=== PATIENT | female | born 1995 | race Caucasian/White ===

== ENCOUNTER 2017-06-17 13:30 | Emergency (ER) | payer BC ==
[~2017-06-17] VITALS: Ht 162.6 cm; Wt 83.5 kg
[~2017-06-17 13:30] MED LIST: DICYCLOMINE HCL20 MG PO; KETOROLAC TROME10 MG PO; NORCO 10-325 T1 EACH PO; ONDANSETRON HCL8 MG PO
== END 2017-06-17 14:50 | disposition home or self-care (01) ==
LOC: FSED 13:30
DX: F41.1 Generalized anxiety disorder (principal)
CPT/HCPCS: 71046; 85379; 99284

== ENCOUNTER 2018-10-19 09:31 | Inpatient (IN) | payer BC, OTHER ==
[~2018-10-19] VITALS: Ht 165.1 cm; Wt 95.9 kg
--- OUTSIDE RECORDS SUMMARY | 2018-10-19 09:34 | XMS REPORT | Encounter Summary ---
Author Organization Unknown Address [address] [place] [address] Phone [phone] Reason for Visit Medical Complaint Instructions 1. Viral upper respiratory tract infection Bromfed DM 2 mg-30 mg-10 mg/5 mL syrup fluticasone 50 mcg/actuation nasal spray,suspension 2. Influenza-like symptoms rapid flu (A+B) 3. Pain in throat sore throat: care instructions Lidocaine Viscous 2 % mucosal solution rapid strep group A, throat 4. Body mass index 30+ - obesity learning about healthy weight Discussion Note Pt is in NAD; Verbalizes understanding of all instructions with no questions at this time. Plan of Care Patient Instructions Stop dayquil and nyquil. Gargle and spit viscous lidocaine as needed for sore throat as directed. Take fluticasone as needed for congestion. [place] one spray in each nostril twice a day. Take a warm, steamy shower, blow your nose thereafter, and spray in each nostril. Tilt your head up for about 10 seconds and breath through your mouth. Do not sniff or snort the medication in or else the medication will go to your throat and not be absorbed appropriately. Take Bromfed DM for cough as directed. Alternate with Ibuprofen and acetaminophen every 4hrs as needed for pain/fever/headache. Proper hydration and rest. Return to work/school if free of fever for 24-hrs. Do not share any utensils/cups, no kissing, recommend hand washing after coughing/sneezing/blowing nose and cover face when you do so. Take medications as prescribed. Follow up with your PCP within 2-3 days if symptoms worsen as discussed. Reminders Provider Appointments None recorded. Lab Rapid Flu (A+B) 12/19/2017 [facility] Rapid Strep Group a, Throat 12/19/2017 [facility] Referral None recorded. Procedures None recorded. Surgeries None recorded. Imaging None recorded. Medications Name Start Date Bromfed DM 2 mg-30 mg-10 mg/5 mL syrup Take 10 mL every 6-8 hours by oral route as needed for 6 days. Fluarix Quad 5087-2251 (PF) 60 mcg (15 mcg x 4)/0.5 mL IM syringe ADM 0.5ML IM UTD fluticasone 50 mcg/actuation nasal spray,suspension [place] 2 sprays every day by intranasal route as needed. Lidocaine Viscous 2 % mucosal solution Take 15 mL every 3 hours by oral route as needed. Medications Administered None recorded. Vitals Height Weight BMI Blood Pressure 5 ft 5 in 180 lbs 30 kg/m2 116/76 mm[Hg] Lab Results Date Name Specimen Result Interpretation Description Value Range Status Address Rapid Strep Group a, Throat Result negative [facility]: [address] [place] [address] Swab Location Left and Right tonsillar pillars [facility]: [address] [place] [address] Rapid Flu (A+B) Influenza a negative [facility]: [address] [place] [address] Influenza B negative [facility]: [address] [place] [address] Allergies Code Code System Name Reaction Severity Status Onset NKDA Problems Name Status Onset Date Source Body Mass Index 30+ - Obesity Active 12/19/2017 Pain in Throat Active 12/19/2017 Viral Upper Respiratory Tract Infection Active 12/19/2017 Influenza-like Symptoms Active 12/19/2017 Procedures None recorded. Vaccine List Vaccine Type influenza, unspecified formulation 11/14/2017 Tdap 02/07/2011 Social History Smoking Status Never Smoker Past Encounters 12/19/2017 Viral Upper Respiratory Tract Infection; Influenza-like Symptoms; Pain in Throat; Body Mass Index 30+ - Obesity Svetlana Ro, [facility]: [address] [place] [address], Ph. History of Present Illness [id number] Reported By: Patient HPI: Quality: symptoms worse during the day. Duration: 3 days. Severity: subjective temperature. Context: no ill contacts, no tick/insect bites, no recent travel, no new medications. Associated Symptoms: no fever/chills, no muscle aches, no rash, no lethargy, headache, cold symptoms, cough, nasal passage blockage (stuffiness), nasal discharge; sore throat, fever and body aches. Modifying Factors nothing gives relief Note:
Review of Systems:ROS as noted in the HPI Review of Systems Basic Reported By: Patient Physical Exam Adult Basic, Adult Female Complete Reported By: Patient Constitutional: General Appearance: obese. Level of Distress: NAD. Ambulation: ambulating normally Psychiatric: Mental Status: active and alert. Orientation: to time, to place, to person Eyes: Lids and Conjunctivae: non-injected, no discharge, no pallor. Corneas: grossly intact. Lens: clear Fea-Djoc-Zqrmb-Throat: Ears: no lesions on external ear, no outer ear tenderness, EACs clear, TMs clear. Nose: no lesions on external nose, nares patent, no septal deviation, nasal passages clear, no sinus tenderness, nasal d ischarge--rhinorrhea, post nasal drip; B/L NTs pink and edematous. Lips, Teeth, and Gums: no mouth or lip ulcers, no bleeding gums, normal dentition. Oropharynx: moist mucous membranes, no erythema, no exudates, tonsils not enlarged Neck: Neck: supple. Lymph Nodes: no cervical LAD Lungs: Respiratory effort: no dyspnea, no tachypnea, no use of accessory muscles, no intercostal retractions. Auscultation: breath sounds normal Cardiovascular: Heart Auscultation: RRR, no murmurs Neurologic: Gait and Station: normal gait, normal station. Cranial Nerves: grossly intact
--- OUTSIDE RECORDS SUMMARY | 2018-10-19 09:34 | XMS REPORT ---
Author Author [facility] Address Unknown Phone Unavailable Care Team Providers Care Health Technician Name Role Phone Unavailable Unavailable Payers Payer Name Policy Type Policy Number Effective Date Expiration Date Problems This patient has no known problems. Allergies, Adverse Reactions, Alerts Allergy Name Allergy Type Status Severity Reaction(s) Onset Date Inactive Date Treating Clinician Comments No Known Drug Allergies DA Active U 2001-03-24 00:00:00 Medications This patient has no known medications. Results Test Description Test Time Test Comments Text Results Atomic Results Result Comments - US TRANSVAGINAL NON OB 2018-06-08 11:54:00 Name: RAHUL HERNANDEZ [facility] [place] : 1995 Age/S: 22 / F [address] [place] [address] Unit #: [id number] Loc: [place] [address] Phys: Leanna Vigil Acct: [id number] Dis Date: Status: REG CLI PHONE #: [phone] Exam Date: 06/08/2018 1142 FAX #: [phone] Reason: MENOMETRORRHAGIA EXAMS: CPT CODE: [id number] [place] [address] PELVIC ULTRASOUND, 06/08/2018: COMPARISON: None CLINICAL HISTORY: N92.1, MENOMETRORRHAGIA. TECHNIQUE: Transabdominal and endovaginal scanning was performed. FINDINGS: The uterus measures 8.0 x 3.4 x 5.1 cm. The endometrial cavity is empty with a thickness of 10 mm. No myometrial abnormality is noted. Trace amount of fluid is seen in the endocervical canal. The right ovary measures 3.5 x 2.3 x 3.2 cm and contains a 2.2 cm cyst/dominant follicle. Doppler flow is demonstrated in the right ovary. The left ovary measures 2.9 x 2.3 x 1.9 cm and appears normal. No free fluid is evident. CONCLUSION: 2.2 cm cyst/dominant follicle involving the right ovary. at 1154 Reported and signed by: [place] Gerard M.D. CC: Sharath Joseph MD; Leanna RAMIREZ Technologist: Nicolette Neil RDMS(BR)(AB) Trnscb Date/Time: 06/08/2018 (2729) [id number] Orig Print D/T: S: 06/08/2018 (5338) Probe: [id number] PAGE 1 Signed Report - US PELVIS COMPLETE 2018-06-08 11:54:00 Name: RAHUL HERNANDEZ Florencia [facility] : 1995 Age/S: 22 / F [address] [place] [address] Unit #: [id number] Loc: [place] [address] Phys: Leanna Vigil Acct: [id number] Dis Date: Status: REG CLI PHONE #: [phone] Exam Date: 06/08/2018 1142 FAX #: [phone] Reason: N92.1, MENOMETRORRHAGIA. EXAMS: CPT CODE: [id number] US PELVIS COMPLETE 57746 PELVIC ULTRASOUND, 06/08/2018: COMPARISON: None CLINICAL HISTORY: N92.1, MENOMETRORRHAGIA. TECHNIQUE: Transabdominal and endovaginal scanning was performed. FINDINGS: The uterus measures 8.0 x 3.4 x 5.1 cm. The endometrial cavity is empty with a thickness of 10 mm. No myometrial abnormality is noted. Trace amount of fluid is seen in the endocervical canal. The right ovary measures 3.5 x 2.3 x 3.2 cm and contains a 2.2 cm cyst/dominant follicle. Doppler flow is demonstrated in the right ovary. The left ovary measures 2.9 x 2.3 x 1.9 cm and appears normal. No free fluid is evident. CONCLUSION: 2.2 cm cyst/dominant follicle involving the right ovary. at 1153 Reported and signed by: [place] Gerard M.D. CC: Shraath Joseph MD; Leanna RAMIREZ Technologist: Nicolette Neil RDMS(BR)(AB) Trnscb Date/Time: 06/08/2018 (3840) [id number] Orig Print D/T: S: 06/08/2018 (2895) Probe: PAGE 1 Signed Report
--- OUTSIDE RECORDS SUMMARY | 2018-10-19 09:34 | XMS REPORT | Continuity of Care Document ---
Author Author [facility] Address Unknown Phone Unavailable Care Team Providers Care Belt Worker Name Role Phone Adype Unavailable Unavailable Problems Problem Status Onset Date Classification Date Reported Comments Source Body mass index 30+ - obesity 12/19/2017 Problem 12/19/2017 [facility] Pain in throat 12/19/2017 Problem 12/19/2017 [facility] Viral upper respiratory tract infection 12/19/2017 Problem 12/19/2017 [facility] Influenza-like symptoms 12/19/2017 Problem 12/19/2017 [facility] Medications Medication Details Route Status Patient Instructions Ordering Provider Order Date Source Brompheniramine Maleate 0.4 MG/ML / Dextromethorphan Hydrobromide 2 MG/ML / Pseudoephedrine Hydrochloride 6 MG/ML Oral Solution [Bromfed DM] Bromfed DM 2 mg-30 mg-10 mg/5 mL syrup Take 10 mL every 6-8 hours by oral route as needed for 6 days. Active [facility] 0.5 ML influenza A virus A//OD9221/2015 (H1N1) antigen 0.03 MG/ML / influenza A virus A//[id number] (H3N2) antigen 0.03 MG/ML / influenza B virus B/ antigen 0.03 MG/ML / influenza B virus B/[facility] antigen 0.03 MG/ML Prefilled Syringe [Fluarix Quadrivalent 6240-2149] Fluarix Quad 6244-0113 (PF) 60 mcg (15 mcg x 4)/0.5 mL IM syringe ADM 0.5ML IM UTD Active [facility] Fluticasone propionate 0.05 MG/ACTUAT Metered Dose Nasal [place] fluticasone 50 mcg/actuation nasal spray,suspension [place] 2 sprays every day by intranasal route as needed. Active [facility] Lidocaine Hydrochloride 20 MG/ML Mucous Membrane Topical Solution Lidocaine Viscous 2 % mucosal solution Take 15 mL every 3 hours by oral route as needed. Active [facility] Allergies, Adverse Reactions, Alerts No Known Medication Allergies Immunizations Immunization Date Given Site Status Last Updated Comments Source influenza, unspecified formulation 11/14/2017 completed [facility] Tdap 02/07/2011 completed [facility] Results Order Name Results Value Reference Range Date Interpretation Comments Source RESULT negative 12/19/2017 [facility] SWAB LOCATION Left and Right tonsillar pillars 12/19/2017 [facility] Influenza A negative 12/19/2017 [facility] Influenza B negative 12/19/2017 [facility] Pathology Reports No Data Provided for This Section Diagnostic Reports No Data Provided for This Section Consultation Notes No Data Provided for This Section Discharge Summaries No Data Provided for This Section History and Physicals No Data Provided for This Section Vital Signs Vital Sign Value Date Comments Source Diastolic (mm Hg) 76 12/19/2017 [facility] Height 65 12/19/2017 [facility] Systolic (mm Hg) 116 12/19/2017 [facility] Weight 180 12/19/2017 [facility] Encounters Location Location Details Encounter Type Encounter Number Reason For Visit Attending Provider ADM Date DC Date Status Source [place] - [facility] - [id number] Ro, [facility]: [address] [place] [address], Ph. [id number] Svetlana Ro 12/19/2017 [facility] Procedures No Data Provided for This Section Assessment and Plan No Data Provided for This Section Plan of Care No Data Provided for This Section Social History Social History Date Source Smoking Status Never Smoker 12/19/2017 [facility] Family History No Data Provided for This Section Advance Directives No Data Provided for This Section Functional Status No Data Provided for This Section
[2018-10-19] MEDS ORDERED: SODIUM CHLORIDE 0.9% 1000ML 1,000 ML IV STA (09:40)
[2018-10-19] MEDS ORDERED: KETOROLAC TROMETHAMINE 30 MG/ML VIAL IV NR (10:00)
[2018-10-19] MEDS ORDERED: ONDANSETRON HCL INJ 2MG/ML 2ML 2 MG/ML VIAL IV NR (10:00)
[2018-10-19] MEDS: MORPHINE SULFATE 2 MG/ML SYR 1ML IV NR ×2 (10:01→10:55)
[2018-10-19 10:06] LABS: BASOPHILS # (AUTO) 0.1 (0.0-0.1); BASOPHILS % 0.8 % (0.0-1.0); EOSINOPHILS # (AUTO) 0.5 (0.0-0.4); EOSINOPHILS % 6.4 % (0.0-6.0); HEMATOCRIT 38.9 % (34.2-44.1); HEMOGLOBIN 12.7 g/dL (12.0-16.0); LYMPHOCYTES # (AUTO) 2.9 (1.0-3.2); MEAN CORPUSCULAR HEMOGLOBIN 26.8 pg (28-32); MEAN CORPUSCULAR HGB CONC 32.6 g/dL (31-35); MEAN CORPUSCULAR VOLUME 82.2 fL (81-99); MONOCYTES # (AUTO) 0.7 (0.2-0.8); MONOCYTES % 8.4 % (4.4-11.3); NEUTROPHILS # (AUTO) 3.6 (2.1-6.9); NEUTROPHILS % 46.1 % (38.7-80.0); PLATELET COUNT 410 x10e3/uL (140-360); RED BLOOD COUNT 4.73 x10e6/uL (3.6-5.1); RED CELL DISTRIBUTION WIDTH 13.7 % (11.7-14.4)
[2018-10-19 10:27] LABS: ANION GAP 15.3 mmol/L (8-16); BLOOD UREA NITROGEN 14 mg/dL (8-26); BUN/CREATININE RATIO 14 (6-25); CARBON DIOXIDE 23 mmol/L (22-32); CHLORIDE 106 mmol/L (101-111); EST GLOMERULAR FILTRATION RATE > 60 ML/MIN (60-); GLUCOSE 104 mg/dL (74-118); POTASSIUM 4.3 mmol/L (3.6-5.1); SODIUM 140 mmol/L (136-144)
[2018-10-19] MEDS ORDERED: SODIUM CHLORIDE 0.9% 1000ML 1,000 ML ONE (10:41)
[2018-10-19 10:55] LABS: ALANINE AMINOTRANSFERASE 15 IU/L (0-55); ALBUMIN 3.8 g/dL (3.5-5.0); ALKALINE PHOSPHATASE 96 IU/L (40-150); CALCIUM 9.8 mg/dL (8.4-10.2)
[2018-10-19] MEDS ORDERED: PROMETHAZINE 12.5MG/ NACL 0.9% 12.5 MG/50 ML BAG IV ONE (11:00)
--- NOTE | 2018-10-19 11:30 | Diagnostic Imaging Report ---
EXAM: CT Abdomen and Pelvis WITHOUT intravenous contrast INDICATION: Left back pain, left flank pain COMPARISON: Report of CT abdomen and pelvis from 01/04/2014. Images are not available for comparison. TECHNIQUE: Abdomen and pelvis were scanned utilizing a multidetector helical scanner from the lung base to the pubic symphysis without administration of IV contrast. Coronal and sagittal reformations were obtained. IV CONTRAST: None ORAL CONTRAST: Water COMPLICATIONS: None RADIATION DOSE: Total DLP: 749.0 mGy*cm Dose modulation, iterative reconstruction, and/or weight based adjustment of the mA/kV was utilized to reduce the radiation dose to as low as reasonably achievable. FINDINGS: LOWER THORAX: Minimal bibasilar subsegmental atelectasis. No focal consolidation. HEPATOBILIARY: No focal hepatic lesions. The gallbladder appears unremarkable. SPLEEN: No splenomegaly. PANCREAS: No focal masses or ductal dilatation. ADRENALS: No adrenal nodules. KIDNEYS/URETERS: There is a 6 mm left distal ureteral calculus with resulting mild left hydroureter and hydronephrosis. There are at least 4 other left renal calculi measuring approximately 4 mm. No right hydronephrosis. Nonobstructing right lower pole renal calculi measure up to 6 mm. PELVIC ORGANS/BLADDER: Unremarkable. PERITONEUM / RETROPERITONEUM: No free air or fluid. LYMPH NODES: No lymphadenopathy. VESSELS: Unremarkable. GI TRACT: No abnormal bowel wall thickening. No bowel obstruction. Normal appendix. BONES AND SOFT TISSUES: No acute osseous injury. No substantial degenerative change. No suspicious lytic or blastic lesions. IMPRESSION: 6 mm left distal ureteral calculus with associated mild left hydroureteronephrosis. At least 4 left renal calculi measure up to 4 mm. Nonobstructing right lower pole renal calculi measuring up to 6 mm. No right hydronephrosis or hydroureter. Signed by: Nany Mahan MD on 10/19/2018 11:27 AM
[2018-10-19] MEDS ORDERED: HYDROMORPHONE 1MG/1ML INJ IV PRN (12:00)
[2018-10-19 12:11] LABS: CLARITY,URINE CLEAR (CLEAR); COLOR,URINE YELLOW (YELLOW)
[2018-10-19 12:12] LABS: LEUKOCYTE ESTERASE ,URINE NEGATIVE (NEGATIVE); NITRITE,URINE NEGATIVE (NEGATIVE); PROTEIN,URINE DIPSTICK TRACE (NEGATIVE)
[2018-10-19 12:13] LABS: KETONES,URINE NEGATIVE (NEGATIVE); URINE UROBILINOGEN 0.2 mg/dL (0.2 - 1)
[2018-10-19 12:14] LABS: BILIRUBIN,URINE NEGATIVE (NEGATIVE)
[2018-10-19 12:15] LABS: BACTERIA,URINE RARE /HPF; EPITHELIAL CELLS,URINE FEW /LPF; RBC,URINE 0-5 /HPF (0-5); WBC,URINE (MAN) 0-5 /HPF (0-5)
[2018-10-19 12:16] LABS: PREGNANCY TEST, URINE NEGATIVE (NEGATIVE)
[2018-10-19] MEDS: SODIUM CHLORIDE 0.9% 1000ML 1,000 ML IV SCH ×3 (13:28→22:46)
[2018-10-19] MEDS: CEFTRIAXONE SOD 1 GM/NS 50 ML 50 ML IV SCH (14:28)
--- OUTSIDE RECORDS SUMMARY | 2018-10-19 17:40 | XMS REPORT | Continuity of Care Document ---
Author Author [facility] Address Unknown Phone Unavailable Care Team Providers Care Crystal Growing Technician Name Role Phone GIVTED Unavailable Unavailable Problems Problem Status Onset Date [...] Active [facility] 0.5 ML influenza A virus A//GW9046/2015 (H1N1) antigen 0.03 MG/ML / influenza A virus A//[id number] (H3N2) antigen 0.03 MG/ML / influenza B virus B/ antigen 0.03 MG/ML / influenza B virus B/[facility] antigen 0.03 MG/ML Prefilled Syringe [Fluarix Quadrivalent 7167-9895] Fluarix Quad 5544-2282 (PF) 60 mcg (15 mcg x 4)/0.5 mL IM syringe ADM 0.5ML IM UTD Active [facility] Fluticasone propionate 0.05 MG/ACTUAT Metered Dose Nasal [place] fluticasone 50 mcg/actuation nasal spray,suspension [place] 2 sprays every day by intranasal route [...] Date Status Source [place] - [facility] - [id number] Ro, [facility]: [address] [place] [address], Ph. [id number] Svetlana Ro 12/19/2017 [facility] Procedures No Data [...]
[2018-10-19] MEDS: ONDANSETRON HCL INJ 2MG/ML 2ML 2 MG/ML VIAL IV PRN (18:45)
[2018-10-19] MEDS: HYDROMORPHONE 1MG/1ML INJ IV PRN (18:47)
[2018-10-19 21:11] VITALS: BP 125/64
--- NOTE | 2018-10-19 21:55 | NUR ---
spoke with answering service Dest[place], routine consult placed to Dr. Figueroa
[2018-10-19 21:59] VITALS: BP 125/64
[2018-10-19 22:04] VITALS: BP 125/64
--- NOTE | 2018-10-19 22:06 | NUR ---
spoke with dr. tanner, aware of consult. orders received for additional pain medication per patients request.
[2018-10-19] MEDS: KETOROLAC TROMETHAMINE 30 MG/ML VIAL IV PRN (22:53)
[2018-10-19 23:45] VITALS: BP 104/57
[2018-10-20] VITALS (7 sets, daily range): BP systolic 112–120; BP diastolic 54–84
[2018-10-20] MEDS: HYDROMORPHONE 1MG/1ML INJ IV PRN ×3 (01:15→14:04)
--- NOTE | 2018-10-20 06:58 | NUR ---
received report from parish visitor RN, pt resting in bed, awake, alert, respirations even and nonlabored, call light within reach, will continue to monitor.
[2018-10-20] MEDS: ONDANSETRON HCL INJ 2MG/ML 2ML 2 MG/ML VIAL IV PRN ×3 (08:26→20:58)
[2018-10-20] MEDS: KETOROLAC TROMETHAMINE 30 MG/ML VIAL IV PRN ×2 (08:26→14:04)
[2018-10-20] MEDS: SODIUM CHLORIDE 0.9% 1000ML 1,000 ML IV SCH (14:04)
[2018-10-20] MEDS: CEFTRIAXONE SOD 1 GM/NS 50 ML 50 ML IV SCH (14:04)
[2018-10-20] MEDS ORDERED: MIDAZOLAM HCL 2 MG/2 ML VIAL ONE (14:39)
[2018-10-20] MEDS ORDERED: MORPHINE SULFATE INJ 10 MG/ML ONE (14:39)
--- NOTE | 2018-10-20 16:19 | NUR ---
pt back from X-ray, in stable condition, will continue to monitor
--- NOTE | 2018-10-20 17:03 | Diagnostic Imaging Report ---
Exam: Abdominal film Clinical History: Preop for kidney stent Comparison: CT 10/19/2018 DISCUSSION: Frontal view of the abdomen shows a nonobstructive bowel gas pattern with mild amount of retained stool.There are no dilated, air-filled loops of bowel. 7 mm nonobstructing calculus in the right kidney. Additional punctate calcific density in the superior pole of the right kidney and ill-defined punctate radiopaque densities projecting over the left renal shadow, consistent with previously visualized calculi on CT dated 10/19/2018. No acute bone abnormality. IMPRESSION: 1. Nonobstructive bowel gas pattern. The staff physician below has personally reviewed this exam on the date of dictation. Signed by: Dr. Ted Schuster M.D. on 10/20/2018 4:59 PM
[2018-10-20] MEDS ORDERED: SEVOFLURANE INHAL SOLN 250 ML PEN BTL ONE (18:10)
[2018-10-20] MEDS ORDERED: ONDANSETRON HCL INJ 2MG/ML 2ML 2 MG/ML VIAL ONE (18:10)
[2018-10-20] MEDS ORDERED: KETOROLAC TROMETHAMINE 30 MG/ML VIAL ONE (18:10)
[2018-10-20] MEDS ORDERED: LIDOCAINE HCL 2% LOCAL INJ 5 ML SDV VIAL INJ ONE (18:10)
[2018-10-20] MEDS ORDERED: PROPOFOL IV EMULSION 10 MG/ML 20 ML VIAL ONE (18:10)
[2018-10-20] MEDS ORDERED: DEXAMETHASONE SOD PHOS INJ 4 MG/ML VIAL ONE (18:10)
--- NOTE | 2018-10-20 18:34 | NUR ---
pt being transported to OR, no distress noted, left in stable condition
--- NOTE | 2018-10-20 19:11 | NUR ---
report given to oncoming [employer] administrator RN, pt in OR, awaiting pt's arrival back to unit.
[2018-10-20] MEDS ORDERED: IOPAMIDOL 610MG/1ML 300 MG/ML VIAL IV ONE (19:16)
[2018-10-20] MEDS ORDERED: B&O 60MG R/S 60 MG SUPP PR ONE (19:16)
--- NOTE | 2018-10-20 20:38 | NUR ---
RECEIVED PATIENT TO UNIT FROM PACU. AAOX3, RESP EVEN AND UNLABORED. PAIN TOLERABLE AT 3/10. ASSISTED PATIENT TO BATHROOM, PATIENT VOIDED POST PROCEDURE. AT THIS TIME NO NEEDS VOICED. BED LOCKED AND IN LOWEST POSITION, CALL LIGHT WITHIN EASY REACH. WILL CONTINUE TO MONITOR THE PATIENT.
[2018-10-21] VITALS: BP 96/59
[2018-10-21] MEDS: SODIUM CHLORIDE 0.9% 1000ML 1,000 ML IV SCH (01:34)
--- NOTE | 2018-10-21 02:17 | Consultation ---
DATE OF CONSULTATION: 10/20/2018 Urology Consultation REASON FOR CONSULTATION: Renal colic. HISTORY OF PRESENT ILLNESS: Prudence Mcclendon is a 23-year-old woman with recurrent urolithiasis. The patient saw my partner, Dr. Balderas, one time in the office 4 years ago for kidney stones. He ordered an IVP. The patient never did the IVP and never followed up. A year later, the patient was admitted to the hospital with renal colic. Dr. Balderas saw her one more time. Intervention was canceled due to passage of her stone. The patient again did not follow up. The patient has severe left-sided flank pain. She was evaluated in the emergency room and was found to have distal left ureterolithiasis with hydroureteronephrosis. Urological consultation was subsequently sought. The patient was admitted yesterday and overnight I was called about pain control and modification of pain medicines for persistent left-sided flank pains that were extremely severe. KUB was performed today to evaluate whether or not there is stone passage. This was noncontributory. The patient is concerned about potential for recurrent pains. The patient reports having had a history also of urinary tract infections. She denies any urinary incontinence. PAST MEDICAL AND SURGICAL HISTORY: None except as above. ALLERGIES: NONE KNOWN. MEDICATIONS: Normally none. SOCIAL HISTORY: The patient has a very supportive family at the bedside. She denies smoking, ethanol, or drug use. FAMILY HISTORY: Significant for ovarian cancer as well as urolithiasis. REVIEW OF SYSTEMS: Discussed as above in history of present illness and past medical history, otherwise negative for all systems. PHYSICAL EXAMINATION: GENERAL: Very pleasant 23-year-old woman, lying in bed, in no apparent distress. She is currently afebrile. VITAL SIGNS: Currently stable. ABDOMEN: Soft, nondistended, nontender without any costovertebral angle tenderness at the present time. For the remaining physical examination systems, please refer to the ERT sheet as well as the history and physical and chart. LABORATORY STUDIES: CT scan of the abdomen and pelvis was done as a stone protocol. It revealed multiple stones in the left kidney measuring at least 4 in number measuring up to 4 mm in size. There is a 6 mm distal left ureteral stone with left hydroureteronephrosis and a 6 mm right lower pole stone. KUB that I ordered today showed a 7 mm lower pole stone in the right kidney. No other calcifications are visible in this particular patient. Urine culture is preliminarily negative. White blood cell count 7710, hemoglobin 12.7, platelets 410,000. The patient's creatinine is 1.0, calcium is 9.8. ASSESSMENT: 1. Left renal colic. 2. History of urolithiasis in the past. 3. Left ureterolithiasis. 4. Left hydroureteronephrosis. 5. Bilateral nephrolithiasis. 6. Urinary tract infections. 7. Obesity. 8. Family history of recurrent urolithiasis. PLAN: I offered the patient additional stone passage trial versus intervention. The patient elected intervention and fears of having yet another bout of recurrent severe left renal colic as she had for the prior 2 days. The patient understands the risks associated with the procedure. Her family also understands the risks associated with the procedure having had those procedures repeatedly and they have all elected to proceed. Thank you very much for involving us in care of your patient. We will be happy to follow her along with you as well as an outpatient. Jonathan MD [place]/MODL /[id number] cc: Sharath Joseph MD
--- NOTE | 2018-10-21 02:57 | Operative Report ---
DATE OF PROCEDURE: 10/20/2018 SURGEON: Jonathan Figueroa MD PREOPERATIVE DIAGNOSES: 1. Left ureterolithiasis. 2. Urinary tract infections. 3. Left hydronephrosis. POSTOPERATIVE DIAGNOSES: 1. Left ureterolithiasis. 2. Urinary tract infections. 3. Left hydronephrosis. OPERATIONS PERFORMED: 1. Cystourethroscopy with bilateral ureteral catheterization and retrograde ureteropyelography (separate procedure performed for the urinary tract infections). 2. Left ureteroscopy (separate procedure performed to evaluate for residual left ureterolithiasis). 3. Radiological services for supervision and interpretation of ureteroscopy. 4. Interpretation of retrograde ureteropyelography. 5. Supervision of fluoroscopy, no radiologist present. 6. Cystourethroscopy with insertion of left indwelling ureteral stent (separate procedure performed to relieve the hydronephrosis). 7. Pelvic examination under anesthesia. ANESTHESIA: General. COMPLICATIONS: None. CLINICAL SUMMARY: Please refer to consultation dictation from the same date. OPERATIVE PROCEDURE IN DETAIL: Informed consent was verified. Prudence Mcclendon was properly identified, taken to the operating room, placed on the cystoscopy table in the supine position. Anesthesia was uneventfully begun. The patient was then carefully gently repositioned in the dorsal lithotomy position with all pressure points well padded. Her genitalia were prepared and draped in usual sterile fashion. The 22.5-[place] cystourethroscope sheath with an obturator in place was atraumatically inserted in the patient's urethra and the bladder was drained. Panendoscopy of the urinary bladder revealed no suspicious mucosal lesions. There were no tumors. There were no stones. There was inflammation noted along the trigone. 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 A guidewire was then placed into the left ureter and guided to the level of the patient's kidney. A semi-rigid ureteroscope was then placed alongside the guidewire and guided into the left distal ureter up to the region of the pelvic vessels. This ureteroscopy revealed no stones. There was erythema noted at the distal ureter and in the proximity of the ureteral orifice consistent with most likely a recently passed stone. With cystoscopic and fluoroscopic guidance, a left-sided indwelling ureteral stent was then placed. It was coiled in the patient's kidneys as well as the patient's bladder. The retaining suture was cut short. Interpretation of retrograde ureteropyelography: Contrast was instilled in a retrograde fashion bilaterally. There were no tumors. There were no suspicious lesions. On the right side, there was no hydronephrosis. There was a stone in the right lower pole corresponding to calcification noted on KUB as well as on CT. The smaller stones in both kidneys were not well visualized. The stent was in good position, coiled in the patient's left kidney as well as the patient's bladder at the end of the case. The patient's bladder was drained and the cystoscope was withdrawn. Pelvic examination under anesthesia revealed a mild cystocele and urethral hypermobility. No abnormal palpable pelvic masses could be appreciated. There were no obvious mucosal lesions. The patient was then uneventfully reversed from anesthesia and taken to recovery room in stable condition. There were no complications to the procedure. She tolerated the procedure well. We will plan on observing the patient overnight and hopefully discharge her home soon once she has adequate pain control. Plan will be to return to the operating room in about a month to remove her left stent, perform left ureteroscopy, eliminate any residual left nephrolithiasis and we will combine this with a multimode procedure of a right ESWL. MD ENEIDA Lauren/RADHA /[id number]
[2018-10-21 04:00] VITALS: BP 97/55
[2018-10-21 05:58] LABS: BASOPHILS % 0.1 % (0.0-1.0); HEMATOCRIT 36.3 % (34.2-44.1); HEMOGLOBIN 11.5 g/dL (12.0-16.0); LYMPHOCYTES # (AUTO) 0.8 (1.0-3.2); LYMPHOCYTES % 10.6 % (18.0-39.1); MEAN CORPUSCULAR HEMOGLOBIN 26.7 pg (28-32); MEAN CORPUSCULAR HGB CONC 31.7 g/dL (31-35); MEAN CORPUSCULAR VOLUME 84.4 fL (81-99); MONOCYTES # (AUTO) 0.1 (0.2-0.8); MONOCYTES % 1.9 % (4.4-11.3); NEUTROPHILS # (AUTO) 6.4 (2.1-6.9); NEUTROPHILS % 86.9 % (38.7-80.0); PLATELET COUNT 337 x10e3/uL (140-360); RED CELL DISTRIBUTION WIDTH 13.5 % (11.7-14.4)
[2018-10-21 06:20] LABS: ANION GAP 11.7 mmol/L (8-16); BLOOD UREA NITROGEN 11 mg/dL (7-26); BUN/CREATININE RATIO 13 (6-25); CALCIUM 9.1 mg/dL (8.4-10.2); CARBON DIOXIDE 25 mmol/L (22-29); CHLORIDE 107 mmol/L (98-107); CREATININE, SERUM 0.82 mg/dL (0.57-1.11); EST GLOMERULAR FILTRATION RATE > 60 ML/MIN (60-); GLUCOSE 141 mg/dL (74-118); POTASSIUM 4.7 mmol/L (3.5-5.1); SODIUM 139 mmol/L (136-145)
--- NOTE | 2018-10-21 07:03 | NUR ---
received report from disulfurizer tender RN, pt laying in bed, respirations even and nonlabored, easily arousable, no distress noted, call light within reach, will continue to monitor
[2018-10-21 07:56] VITALS: BP 97/55
[2018-10-21 08:00] VITALS: BP 112/63
[2018-10-21] MEDS: HYDROMORPHONE 1MG/1ML INJ IV PRN (09:54)
[2018-10-21] MEDS: ONDANSETRON HCL INJ 2MG/ML 2ML 2 MG/ML VIAL IV PRN (09:54)
[2018-10-21] MEDS: KETOROLAC TROMETHAMINE 30 MG/ML VIAL IV PRN (09:54)
[2018-10-21] MEDS ORDERED: TYLENOL WITH C1 EACH PO (13:22)
[2018-10-21] MEDS ORDERED: DITROPAN XL5 MG PO (13:23)
[2018-10-21] MEDS ORDERED: CEFUROXIME500 MG PO (13:25)
--- NOTE | 2018-10-29 16:45 | Discharge Summary ---
DISCHARGE DIAGNOSES: 1. Left kidney stone. 2. Urinary tract infection. HISTORY OF PRESENT ILLNESS AND HOSPITAL COURSE: The patient is a lady, who presented with acute left flank pain, where she was noticed to have urinary tract infection as well as evidence of a kidney stone. She was brought in and placed on IV antibiotics, was seen by Urology. At the time of intervention, there was no evidence of a stone, so the patient was then able to be discharged home with p.o. antibiotics. She will follow up in 1 to 2 weeks with me. Please see also chart for full details. MD JAME Kulkarni/RADHA /[id number]
== END 2018-10-21 14:04 | disposition home or self-care (01) | DRG 661 ==
LOC: ER 09:31 → ERHOLD 17:37 → MED/SURG 21:11
PROVIDERS: ADMIT Internal Medicine; ATTEND Internal Medicine
PROC: 0T768ZZ Dilation of Right Ureter, Via Natural or Artificial Opening Endoscopic (ICD-10-PCS; 2018-10-20)
PROC: BT141ZZ Fluoroscopy of Kidneys, Ureters and Bladder using Low Osmolar Contrast (ICD-10-PCS; 2018-10-20)
PROC: 0T778DZ Dilation of Left Ureter with Intraluminal Device, Via Natural or Artificial Opening Endoscopic (ICD-10-PCS; principal; 2018-10-20 19:13)
DX: N13.2 Hydronephrosis with renal and ureteral calculous obstruction (principal); Z87.442 Personal history of urinary calculi; E66.9 Obesity, unspecified; Z68.35 Body mass index [BMI] 35.0-35.9, adult
CPT/HCPCS: 36415; 74018; 74176; 74420; 80048; 80053; 81001; 81025; 83970; 84550; 84702; 85025; 87086; 99284; C1758; C2617; J0696; J1100; J1170; J1885; J2001; J2250; J2270; J2405; J2550; J7030

== ENCOUNTER → 2021-01-14 | Day surgery (SDC) | payer BC, OTHER ==
[~2021-01-14] MED LIST changes: +CARAFATE1 GM PO; +CEFUROXIME500 MG PO; +DITROPAN XL5 MG PO; +FENTANYL CITRATE/PF 100MCG/2 ML INJ ONE; +LIDOCAINE HCL 2% LOCAL INJ 5 ML SDV VIAL INJ ONE; +LOMOTIL TABLET1 EACH PO; +METOCLOPRAMIDE HCL 10 MG/2ML VIAL ONE; +MIDAZOLAM HCL 2 MG/2 ML VIAL ONE; +PROPOFOL IV EMULSION 10 MG/ML 20 ML VIAL ONE; +TYLENOL WITH C1 EACH PO
[2021-01-14 14:25] VITALS: BP 121/79
== END | disposition home or self-care (01) ==
LOC: ENDO 10:25
PROVIDERS: ATTEND Internal Medicine Gastroenterology
DX: K20.90 Esophagitis, unspecified without bleeding (principal); K29.70 Gastritis, unspecified, without bleeding; R13.10 Dysphagia, unspecified; K21.9 Gastro-esophageal reflux disease without esophagitis; Z87.442 Personal history of urinary calculi; E66.9 Obesity, unspecified; F41.9 Anxiety disorder, unspecified; R11.0 Nausea; R11.10 Vomiting, unspecified; R13.19 Other dysphagia; J39.2 Other diseases of pharynx; Z68.37 Body mass index [BMI] 37.0-37.9, adult; Z01.812 Encounter for preprocedural laboratory examination; Z20.822 Contact with and (suspected) exposure to COVID-19
CPT/HCPCS: 43239; 43450; 81025; C9113; J2001; J2250; J2704; J2765; J3010; U0002

== ENCOUNTER 2021-01-20 16:25 | Emergency (ER) | payer BC, OTHER ==
[~2021-01-20] VITALS: Ht 165.1 cm; Wt 97.7 kg
[~2021-01-20 16:25] MED LIST changes: -FENTANYL CITRATE/PF 100MCG/2 ML INJ ONE; -LIDOCAINE HCL 2% LOCAL INJ 5 ML SDV VIAL INJ ONE; -LOMOTIL TABLET1 EACH PO; -METOCLOPRAMIDE HCL 10 MG/2ML VIAL ONE; -MIDAZOLAM HCL 2 MG/2 ML VIAL ONE; -PROPOFOL IV EMULSION 10 MG/ML 20 ML VIAL ONE
[2021-01-20] MEDS ORDERED: ONDANSETRON HCL INJ 2MG/ML 2ML 2 MG/ML VIAL IV STA (17:58)
[2021-01-20] MEDS ORDERED: FAMOTIDINE 20 MG/2 ML VIAL IV STA (17:58)
[2021-01-20] MEDS ORDERED: SODIUM CHLORIDE 0.9% 1000ML 1,000 ML IV SCH (18:00)
[2021-01-20] MEDS ORDERED: ONDANSETRON HCL INJ 2MG/ML 2ML 2 MG/ML VIAL ONE (18:19)
[2021-01-20] MEDS ORDERED: FAMOTIDINE 20 MG/2 ML VIAL IV ONE (18:19)
[2021-01-20] MEDS ORDERED: SODIUM CHLORIDE 0.9% 1000ML 1,000 ML ONE (18:19)
[2021-01-20] MEDS ORDERED: IOPAMIDOL 370 MG/ML 200 ML INFUS..BTL INJ ONE (18:42)
[2021-01-20] MEDS ORDERED: SODIUM CHLORIDE 0.9% 50ML 50 ML ONE (18:42)
[2021-01-20] MEDS ORDERED: DICYCLOMINE HCL 20 MG TAB PO ONE (20:15)
[2021-01-20] MEDS ORDERED: DIPHENOXYLATE/ATROPINE TAB PO ONE (20:15)
[2021-01-20] MEDS ORDERED: DICYCLOMINE HCL 10 MG CAP ONE (20:26)
[2021-01-20] MEDS ORDERED: LOMOTIL TABLET1 EACH PO (21:04)
[2021-01-20] MEDS ORDERED: DICYCLOMINE HCL20 MG PO (21:06)
== END 2021-01-20 21:38 | disposition home or self-care (01) ==
LOC: FSED 17:11
DX: R11.2 Nausea with vomiting, unspecified (principal); R10.13 Epigastric pain; K21.9 Gastro-esophageal reflux disease without esophagitis; R19.7 Diarrhea, unspecified; F41.9 Anxiety disorder, unspecified; Z87.442 Personal history of urinary calculi
CPT/HCPCS: 74177; 80048; 80076; 81003; 81025; 85025; 96374; 96375; 99284; J2405; J7030; Q9967

== ENCOUNTER 2021-07-10 10:27 | Inpatient (IN) | payer BC, OTHER ==
[~2021-07-10] VITALS: Ht 165.1 cm; Wt 98.4 kg
[~2021-07-10 10:27] MED LIST changes: +LOMOTIL TABLET1 EACH PO
[2021-07-10] MEDS ORDERED: ONDANSETRON HCL INJ 2MG/ML 2ML 2 MG/ML VIAL IV STA (10:57)
[2021-07-10] MEDS ORDERED: SODIUM CHLORIDE 0.9% 1000ML 1,000 ML IV ONE (11:00)
[2021-07-10 11:13] LABS: BASOPHILS # (AUTO) 0.1 (0.0-0.1); BASOPHILS % 0.3 % (0.0-1.0); EOSINOPHILS # (AUTO) 0.2 (0.0-0.4); EOSINOPHILS % 0.9 % (0.0-6.0); HEMATOCRIT 36.6 % (34.2-44.1); HEMOGLOBIN 11.7 g/dL (12.0-16.0); LYMPHOCYTES # (AUTO) 1.4 (1.0-3.2); LYMPHOCYTES % 7.7 % (18.0-39.1); MEAN CORPUSCULAR VOLUME 90.6 fL (81-99); MONOCYTES # (AUTO) 0.6 (0.2-0.8); MONOCYTES % 3.1 % (4.4-11.3); NEUTROPHILS # (AUTO) 15.7 (2.1-6.9); NEUTROPHILS % 87.4 % (38.7-80.0); PLATELET COUNT 333 x10e3/uL (140-360); RED BLOOD COUNT 4.04 x10e6/uL (3.6-5.1); RED CELL DISTRIBUTION WIDTH 13.4 % (11.7-14.4)
[2021-07-10] MEDS ORDERED: Morphine 4mg Syringe 4 MG/ML INJ IV ONE (11:15)
[2021-07-10 11:29] LABS: ALANINE AMINOTRANSFERASE 23 IU/L (0-55); ALBUMIN 2.9 g/dL (3.5-5.0); ALBUMIN/GLOBULIN RATIO 0.7 (0.8-2.0); ALKALINE PHOSPHATASE 86 IU/L (40-150); ANION GAP 14.8 mmol/L (8-16); BLOOD UREA NITROGEN 6 mg/dL (7-26); BUN/CREATININE RATIO 7 (6-25); CALCIUM 8.4 mg/dL (8.4-10.2); CARBON DIOXIDE 22 mmol/L (22-29); CHLORIDE 103 mmol/L (98-107); CREATINE KINASE 24 IU/L (29-168); CREATININE, SERUM 0.85 mg/dL (0.57-1.11); GLUCOSE 144 mg/dL (74-118); POTASSIUM 3.8 mmol/L (3.5-5.1); SODIUM 136 mmol/L (136-145)
[2021-07-10 11:31] LABS: INR 1.09; PARTIAL THROMBOPLASTIN TIME 35.2 seconds (23.8-35.5); PROTHROMBIN TIME 15.1 seconds (11.9-14.5)
[2021-07-10] MEDS ORDERED: IOPAMIDOL 370 MG/ML 100 ML INFUS..BTL INJ ONE (11:47)
[2021-07-10] MEDS ORDERED: ACETAMINOPHEN 1000 MG/100 ML IV STA (11:56)
[2021-07-10] MEDS ORDERED: ACETAMINOPHEN 1000 MG/100 ML 100 ML IV ONE (12:10)
[2021-07-10 12:29] LABS: CLARITY,URINE CLEAR (CLEAR); COLOR,URINE YELLOW (YELLOW); KETONES,URINE NEGATIVE (NEGATIVE); LEUKOCYTE ESTERASE ,URINE TRACE (NEGATIVE); NITRITE,URINE NEGATIVE (NEGATIVE); PROTEIN,URINE DIPSTICK TRACE (NEGATIVE); URINE UROBILINOGEN 1 mg/dL (0.2 - 1)
[2021-07-10 12:39] LABS: BACTERIA,URINE MODERATE /HPF; EPITHELIAL CELLS,URINE MANY /LPF; WBC,URINE (MAN) >50 /HPF (0-5)
[2021-07-10] MEDS ORDERED: METRONIDAZOLE 500MG/NS 100ML IV SCH (13:15)
[2021-07-10] MEDS: Morphine 4mg Syringe 4 MG/ML INJ IV PRN ×4 (14:06→23:54)
[2021-07-10 14:32] VITALS: BP 109/71
[2021-07-10] MEDS: METRONIDAZOLE 500MG/NS 100ML 100 ML IV SCH ×2 (15:04→21:02)
[2021-07-10] MEDS: SODIUM CHLORIDE 0.9% 1000ML 1,000 ML IV SCH ×2 (15:04→22:40)
[2021-07-10 16:07] VITALS: BP 109/71
[2021-07-10] MEDS: ONDANSETRON HCL INJ 2MG/ML 2ML 2 MG/ML VIAL IV PRN ×2 (17:46→23:53)
[2021-07-10] MEDS: ACETAMINOPHEN 1000 MG/100 ML IV PRN (19:20)
[2021-07-10 20:00] VITALS: BP_SYST 100; BP_DIAS 65; BP_DIAS 71
[2021-07-11] VITALS (9 sets, daily range): BP systolic 91–114; BP diastolic 50–77
[2021-07-11] MEDS: METRONIDAZOLE 500MG/NS 100ML 100 ML IV SCH ×4 (03:25→21:06)
[2021-07-11] MEDS: SODIUM CHLORIDE 0.9% 1000ML 1,000 ML IV SCH ×2 (03:25→14:15)
[2021-07-11] MEDS: Morphine 4mg Syringe 4 MG/ML INJ IV PRN ×5 (03:36→21:14)
[2021-07-11] MEDS: ONDANSETRON HCL INJ 2MG/ML 2ML 2 MG/ML VIAL IV PRN ×4 (03:39→21:14)
[2021-07-11 06:57] LABS: BASOPHILS % 0.3 % (0.0-1.0); EOSINOPHILS # (AUTO) 0.2 (0.0-0.4); EOSINOPHILS % 1.5 % (0.0-6.0); HEMATOCRIT 33.3 % (34.2-44.1); HEMOGLOBIN 10.4 g/dL (12.0-16.0); LYMPHOCYTES % 8.5 % (18.0-39.1); MEAN CORPUSCULAR HEMOGLOBIN 28.6 pg (28-32); MEAN CORPUSCULAR HGB CONC 31.2 g/dL (31-35); MEAN CORPUSCULAR VOLUME 91.5 fL (81-99); MONOCYTES # (AUTO) 0.7 (0.2-0.8); MONOCYTES % 5.8 % (4.4-11.3); NEUTROPHILS # (AUTO) 9.6 (2.1-6.9); NEUTROPHILS % 83.2 % (38.7-80.0); PLATELET COUNT 278 x10e3/uL (140-360); RED BLOOD COUNT 3.64 x10e6/uL (3.6-5.1); RED CELL DISTRIBUTION WIDTH 13.4 % (11.7-14.4)
[2021-07-11 07:23] LABS: ALBUMIN 2.4 g/dL (3.5-5.0); ALBUMIN/GLOBULIN RATIO 0.6 (0.8-2.0); ANION GAP 14.9 mmol/L (8-16); CREATININE, SERUM 0.76 mg/dL (0.57-1.11); POTASSIUM 3.9 mmol/L (3.5-5.1)
[2021-07-11] MEDS: ACETAMINOPHEN 1000 MG/100 ML IV PRN (08:55)
[2021-07-11] MEDS ORDERED: ACETAMINOPHEN 1000 MG/100 ML IV PRN (22:45)
[2021-07-12] VITALS (8 sets, daily range): BP systolic 98–146; BP diastolic 59–96
[2021-07-12] MEDS: Morphine 4mg Syringe 4 MG/ML INJ IV PRN ×7 (00:32→20:30)
[2021-07-12] MEDS: METRONIDAZOLE 500MG/NS 100ML 100 ML IV SCH ×4 (03:24→21:00)
[2021-07-12] MEDS: SODIUM CHLORIDE 0.9% 1000ML 1,000 ML IV SCH ×3 (03:26→14:46)
[2021-07-12] MEDS: ONDANSETRON HCL INJ 2MG/ML 2ML 2 MG/ML VIAL IV PRN ×5 (03:33→21:30)
[2021-07-12 06:50] LABS: BASOPHILS % 0.4 % (0.0-1.0); EOSINOPHILS # (AUTO) 0.2 (0.0-0.4); EOSINOPHILS % 3.6 % (0.0-6.0); HEMATOCRIT 30.6 % (34.2-44.1); HEMOGLOBIN 9.6 g/dL (12.0-16.0); LYMPHOCYTES # (AUTO) 1.4 (1.0-3.2); MEAN CORPUSCULAR HEMOGLOBIN 28.7 pg (28-32); MEAN CORPUSCULAR HGB CONC 31.4 g/dL (31-35); MEAN CORPUSCULAR VOLUME 91.6 fL (81-99); MONOCYTES # (AUTO) 0.5 (0.2-0.8); MONOCYTES % 7.4 % (4.4-11.3); NEUTROPHILS # (AUTO) 4.6 (2.1-6.9); PLATELET COUNT 282 x10e3/uL (140-360); RED BLOOD COUNT 3.34 x10e6/uL (3.6-5.1); RED CELL DISTRIBUTION WIDTH 13.3 % (11.7-14.4)
[2021-07-12 07:20] LABS: ANION GAP 10.9 mmol/L (8-16); CALCIUM 7.8 mg/dL (8.4-10.2); CREATININE, SERUM 0.72 mg/dL (0.57-1.11); POTASSIUM 3.9 mmol/L (3.5-5.1)
[2021-07-12] MEDS ORDERED: ACETAMINOPHEN 325 MG TAB PO PRN (07:45)
[2021-07-12] MEDS ORDERED: METOCLOPRAMIDE HCL 10 MG/2ML VIAL IV ONE (22:45)
[2021-07-13] VITALS: BP 121/77
[2021-07-13] MEDS: Morphine 4mg Syringe 4 MG/ML INJ IV PRN (02:15)
[2021-07-13] MEDS: METRONIDAZOLE 500MG/NS 100ML 100 ML IV SCH ×3 (04:30→15:08)
[2021-07-13] MEDS: SODIUM CHLORIDE 0.9% 1000ML 1,000 ML IV SCH ×2 (04:34→12:16)
[2021-07-13 04:56] VITALS: BP 100/70
[2021-07-13 07:52] VITALS: BP 113/78
[2021-07-13 08:07] VITALS: BP 113/78
[2021-07-13] MEDS: HYDROCODONE/APAP 5MG-325MG TAB PO PRN ×2 (09:30→15:25)
[2021-07-13 11:56] VITALS: BP 116/73
[2021-07-13 15:55] VITALS: BP 104/78
[2021-07-13] MEDS ORDERED: CIPRO500 MG PO (18:02)
[2021-07-13] MEDS ORDERED: METRONIDAZOLE 500 MG TAB PO SCH (21:00)
== END 2021-07-13 18:30 | disposition home or self-care (01) | DRG 392 ==
LOC: ER 10:44 → ERHOLD 13:06 → MED/SURG2 14:38
PROVIDERS: ADMIT Internal Medicine; ATTEND Internal Medicine
DX: K52.9 Noninfective gastroenteritis and colitis, unspecified (principal); N39.0 Urinary tract infection, site not specified; K57.90 Diverticulosis of intestine, part unspecified, without perforation or abscess without bleeding; N20.0 Calculus of kidney; D64.9 Anemia, unspecified; F41.9 Anxiety disorder, unspecified; Z20.822 Contact with and (suspected) exposure to COVID-19; K21.00 Gastro-esophageal reflux disease with esophagitis, without bleeding; R50.9 Fever, unspecified
CPT/HCPCS: 36415; 74177; 80048; 80053; 81001; 82550; 82553; 83605; 84484; 84702; 85025; 85610; 85730; 87040; 87086; 96361; 99284; J0696; J2270; J2405; J2543; J2765; J7030; Q9967

== ENCOUNTER → 2024-02-15 | Day surgery (SDC) | payer BC ==
[~2024-02-15] MED LIST changes: +CIPRO500 MG PO; +FENTANYL CITRATE/PF 100MCG/2 ML INJ ONE; +GLYCOPYRROLATE INJ 0.2 MG/ML VIAL ONE; +LIDOCAINE HCL 2% LOCAL INJ 5 ML SDV VIAL INJ ONE; +PROPOFOL IV EMULSION 10 MG/ML 20 ML VIAL ONE
[2024-02-15] MEDS: LACTATED RINGER'S 1,000 ML ONE (06:01)
[2024-02-15 08:10] VITALS: TEMP 98.2
[2024-02-15 08:40] VITALS: BP 126/84; PULSE 75; RESP 16; O2SAT 99
[2024-02-21 13:10] LABS: ENDOMYSIAL ANTIBODIES, IGA Negative (Negative)
[2024-02-21 16:31] LABS: IMMUNOGLOBULIN A 298 mg/dL (87-352); TISSUE TRANSGLUTAMINASE IGA AB <2 U/mL (0-3)
== END | disposition home or self-care (01) ==
LOC: ENDO 05:43
PROVIDERS: ATTEND Internal Medicine Gastroenterology
DX: K29.60 Other gastritis without bleeding (principal); K20.90 Esophagitis, unspecified without bleeding; K21.9 Gastro-esophageal reflux disease without esophagitis; Z71.3 Dietary counseling and surveillance; E66.9 Obesity, unspecified; F17.290 Nicotine dependence, other tobacco product, uncomplicated; Z68.37 Body mass index [BMI] 37.0-37.9, adult; Z87.19 Personal history of other diseases of the digestive system; Z86.19 Personal history of other infectious and parasitic diseases
CPT/HCPCS: 43239; 43450; 81025; 82784; 83516; 86256; J2003; J2470; J2704; J3010; J7121

== ENCOUNTER → 2024-02-23 | Outpatient (REF) | payer BC ==
[~2024-02-23] MED LIST changes: -FENTANYL CITRATE/PF 100MCG/2 ML INJ ONE; -GLYCOPYRROLATE INJ 0.2 MG/ML VIAL ONE; -LIDOCAINE HCL 2% LOCAL INJ 5 ML SDV VIAL INJ ONE; -PROPOFOL IV EMULSION 10 MG/ML 20 ML VIAL ONE
== END ==
LOC: NM 08:10
PROVIDERS: ATTEND Nurse Practitioner
DX: R11.0 Nausea (principal); R19.5 Other fecal abnormalities; R10.11 Right upper quadrant pain; Z87.19 Personal history of other diseases of the digestive system
CPT/HCPCS: 78227; 81025; A9537